=== PATIENT | female | born 1980 | race Caucasian/White ===

== ENCOUNTER 2017-10-28 07:55 | Day surgery (SDC) | payer OTHER ==
[2017-10-28] MEDS ORDERED: LIDOCAINE 4% SOLUTION 50 ML BTL (10:21)
[2017-10-28] MEDS ORDERED: FENTAnyl 50 MCG/ML VIAL (11:15)
[2017-10-28] MEDS ORDERED: MIDAZOLAM 1 MG/ML 2 ML INJ ×3 (11:15)
== END 2017-10-28 11:44 | disposition home or self-care (01) ==
LOC: GIL 07:55
DX: K62.1 Rectal polyp (principal); K64.4 Residual hemorrhoidal skin tags
CPT/HCPCS: 43239; 88305

== ENCOUNTER 2019-03-27 12:08 | Day surgery (SDC) | payer OTHER ==
[~2019-03-27 12:08] MED LIST: CEFAZOLIN 1 GM/50 ML (PMX) 50 ML IVPB; SOD CHLORIDE 0.9% 1,000 ML IV
[2019-03-27 14:42] LABS: ADD MAN DIFF? NO
[2019-03-27 14:45] LABS: BASOPHIL # 0.1 10^3/ul (0.0-0.1); BASOPHILS % 0.8 % (0.0-2.0); EOSINOPHILS # 0.1 10^3/ul (0.0-0.5); EOSINOPHILS % 0.8 % (0.0-7.0); HEMATOCRIT 40.8 % (37.0-47.0); HEMOGLOBIN 13.6 g/dl (12.0-16.0); LYMPHOCYTES # 2.1 10^3/ul (0.8-2.9); LYMPHOCYTES % 34.4 % (15.0-51.0); MEAN CORPUSCULAR HEMOGLOBIN 30.4 pg (29.0-33.0); MEAN CORPUSCULAR HGB CONC 33.3 g/dl (32.0-37.0); MEAN CORPUSCULAR VOLUME 91.1 fl (82.0-101.0); MEAN PLATELET VOLUME 11.5 fl (7.4-10.4); MONOCYTE # 0.5 10^3/ul (0.3-0.9); MONOCYTES % 8.9 % (0.0-11.0); NEUTROPHIL # 3.3 10^3/ul (1.6-7.5); NEUTROPHILS % 54.6 % (39.0-77.0); PLATELET COUNT 244 10^3/UL (140-415); RED BLOOD COUNT 4.48 10^6/ul (4.20-5.40); RED CELL DISTRIBUTION WIDTH 12.3 % (11.5-14.5)
[2019-03-27 15:02] LABS: ALANINE AMINOTRANSFERASE 28 IU/L (13-69); ALBUMIN 3.8 g/dl (3.3-4.9); ALBUMIN/GLOBULIN RATIO 1.18; ALKALINE PHOSPHATASE 49 IU/L (42-121); ANION GAP 6 (5-13); ASPARTATE AMINO TRANSFERASE 25 IU/L (15-46); BILIRUBIN,INDIRECT 0.4 mg/dl (0-1.1); BILIRUBIN,TOTAL 0.4 mg/dl (0.2-1.3); BLOOD UREA NITROGEN 11 mg/dl (7-20); CALCIUM 8.7 mg/dl (8.4-10.2); CARBON DIOXIDE 26 mmol/L (21-31); CHLORIDE 109 mmol/L (97-110); Estimated GFR > 60 mL/min (>60); GLUCOSE 86 mg/dl (70-220); SODIUM 141 mmol/L (135-144)
[2019-03-27 15:03] LABS: INR 0.87; PROTIME 11.9 Sec (11.9-14.9); PT RATIO 0.9
[2019-03-27 15:04] LABS: PARTIAL THROMBOPLASTIN TIME 29.7 Sec (23.0-35.0)
[2019-03-27] MEDS ORDERED: LIDOCAINE 2% (MDV) 20 ML INJ (17:36)
[2019-03-27] MEDS ORDERED: BUPIVACAINE 0.5% (SDV) 30 ML INJ (17:36)
[2019-03-27] MEDS ORDERED: FENTAnyl 50 MCG/ML VIAL (17:52)
[2019-03-27] MEDS ORDERED: MIDAZOLAM 1 MG/ML 2 ML INJ (17:52)
[2019-03-27] MEDS: BUPIVACAINE 0.25% (MPF) 30 ML INJ (18:09)
[2019-03-27] MEDS ORDERED: LIDOCAINE 2% (SDV) 5 ML INJ (18:18)
[2019-03-27] MEDS ORDERED: PROPOFOL 20 ML (18:18)
[2019-03-27] MEDS ORDERED: ONDANSETRON 4 MG INJ (18:19)
[2019-03-27] MEDS ORDERED: CEFAZOLIN 1 GM INJ (18:19)
[2019-03-27] MEDS ORDERED: HYDROCODONE/APAP (5/325) TAB PO (18:30)
[2019-03-27] MEDS ORDERED: FENTAnyl 50 MCG/ML VIAL IV (19:00)
[2019-03-27] MEDS ORDERED: MEPERIDINE 25 MG INJ IV (19:00)
[2019-03-27] MEDS ORDERED: METOCLOPRAMIDE 10 MG INJ IV (19:00)
[2019-03-27] MEDS ORDERED: DIPHENHYDRAMINE 50 MG INJ IV (19:00)
[2019-03-27] MEDS ORDERED: ONDANSETRON 4 MG INJ IV (19:00)
== END 2019-03-27 19:35 | disposition home or self-care (01) ==
LOC: SDS 12:08
DX: D17.1 Benign lipomatous neoplasm of skin and subcutaneous tissue of trunk (principal)
CPT/HCPCS: 14001; 80053; 85025; 85610; 85730; 88307